=== PATIENT | male | born 1990 | race Caucasian/White ===

== ENCOUNTER → 2016-07-16 | Outpatient (CLI) | payer OTHER ==
[2016-07-16 10:56] LABS: CHOLESTEROL/HDL RATIO 3.8
== END ==
LOC: C.LABBC 08:57
PROVIDERS: ATTEND Physician Assistant Medical
DX: Z00.00 Encounter for general adult medical examination without abnormal findings (principal)

== ENCOUNTER → 2017-04-05 | Outpatient (CLI) | payer OTHER ==
--- NOTE | 2017-04-05 09:15 | DIAGNOSTIC IMAGING REPORT ---
SCROTAL ULTRASOUND CLINICAL HISTORY: Testicular lump. COMPARISON STUDY: None. TECHNIQUE: Grayscale and color and duplex Doppler sonography of the scrotum was performed. FINDINGS: The right testis measures 4.5 x 1.9 x 2.8 cm and the left measures 4.3 x 2.1 x 2.7 cm. There is no testicular mass. Color flow within each testis is symmetric. Note is made of a 5 mm right epididymal cyst which reflects the palpable abnormality. IMPRESSION: 1. Normal sonographic appearance of the testes. No testicular mass. 2. 5 mm right epididymal cyst which reflects the palpable abnormality. Electronically signed by: Ran Cooper M.D. 04/05/2017 9:14 AM Dictated Date/Time: 04/05/2017 9:13 AM
== END | disposition home or self-care (01) ==
LOC: C.ULTRBC 08:46
PROVIDERS: ATTEND Internal Medicine
DX: N50.3 Cyst of epididymis (principal)